=== PATIENT | male | born 1970 | race Caucasian/White ===

== ENCOUNTER 2017-04-30 17:13 | Inpatient (IN) | payer BC ==
[~2017-04-30] VITALS: Ht 177.8 cm; Wt 80.1 kg
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
--- NOTE | ~2017-04-30 | OR ---
PATIENT'S NAME: CAHTY POWELL [facility] AGE: 46 Y [address] 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 I went ahead and reprogrammed the valve from 15 cm to 12 cm of water. Repeated the scan today and there was still no change in the size of the ventricles consequently. I decided to go ahead and do a shuntogram to see if the shunt was blocked and if it was blocked to have an idea of which end. PREOPERATIVE DIAGNOSIS: Hydrocephalus. POSTOPERATIVE DIAGNOSIS: Hydrocephalus. OPERATION PROPOSED AND PERFORMED: Injection of radioisotope into the reservoir of the Codman programmable valve. DESCRIPTION OF PROCEDURE: His procedure was carried out in the nuclear medicine suite. The head was prepped in the usual manner. I put in sterile gloves. I was able to palpate the location of the reservoir and did insert a 25-gauge needle into the reservoir, and was able to aspirate CSF easily and went ahead and injected the radioisotope into the reservoir. He tolerated the procedure well. MD FABIANA BLEDSOE/modl /[id number] d: 05/03/171922 t: 05/08/17 1522, OPERATIVE SUMMARY
--- NOTE | ~2017-04-30 | CON ---
PATIENT'S NAME: CATHY POWELL [facility] AGE: 46 Y [address] ROOM: [address] [place] [address] LOCATION: [facility] ADMIT DATE: 04/30/2017 Consultation DISCHARGE DATE: FAMILY PHYSICIAN: PHYSICIAN, NO ATTENDING PHYSICIAN: ROB GOOD V REFERRING PHYSICIAN: Adam Wright MD HISTORY OF PRESENT ILLNESS: This 46-year-old male was seen by me in the intensive care unit. He was admitted yesterday with a history of sudden severe headache. 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 He also had difficulty concentrating along with his severe headache. After a few hours, he decided to go home from work, and while he was in his car, he had what it was thought to be probably a syncopal episode . He was eventually taken to the emergency room. In the emergency room, he was still complaining of severe headache, the worst he has ever had in his life. His blood pressure then was more than 230 systolic, and consequent to this, he had a lumbar puncture done. The lumbar puncture was unremarkable, literally normal CSF findings. There was no blood in the CSF, and he also went onto have a CT scan of the brain. CT scan of the brain did show a moderate hydrocephalus. CT of his cervical spine was normal. He went on to have an MRI of the brain. The MRI of the brain was also uneventfully just showed the hydrocephalus. There was no known etiology for the hydrocephalus. He has not seen a physician over 20 years. In the emergency room, he denied any chest pain, did not have any shortness of breath. There was no nausea or vomiting. He did complain of some fuzziness of his vision. REVIEW OF SYSTEMS: Apart from the headache and the fuzzy vision, there was really no other abnormality on review of systems. PAST MEDICAL HISTORY: Nil of note. SOCIAL HISTORY: He smokes occasionally. He smokes cigars and drinks beer also occasionally. FAMILY HISTORY: Noncontributory. PHYSICAL EXAMINATION: VITAL SIGNS: In the ICU, this is a 46-year-old male, whose blood pressure was 168/108, the pulse was 83 and regular, respirations were 18, temperature was 98.6. EYES: Pupils were 3 mm in diameter. They both reacted briskly to the light. PATIENT'S NAME: CATHY POWELL [facility] AGE: 46 Y [address] ROOM: [address] [address] LOCATION: [facility] ADMIT DATE: 04/30/2017 Consultation DISCHARGE DATE: FAMILY PHYSICIAN: PHYSICIAN, NO ATTENDING PHYSICIAN: ROB GOOD V GENERAL: He was awake. He was alert. HENT: He was normocephalic. NECK: There was no tenderness on palpating the cervical spinous process. There was no restriction of flexion or extension of the cervical spine. CHEST: Clear. HEART: Rate was regular. ABDOMEN: Soft. NEUROLOGIC: The cranial nerve examination was normal. The motor examination was normal. The reflexes were normal. The toes were downgoing. IMPRESSION AND PLAN: I did review the MRI. I felt that there was some probable lesion within the tonsils. Consequently, I suggested that we should get an MRI of the brain with contrast. In addition, however, I felt that he definitely had hydrocephalus, and consequent to that, my recommendation is that he should have a right CLASSROOM INSTRUCTOR shunt done. The hydrocephalus could explain both the fuzziness of his vision as well as the increased blood pressure and the severe headaches. The other differential here would be malignant hypertension. MD FABIANA BLEDSOE/eric /[id number] d: 05/02/173 t: 05/08/17 1514, CONSULTATION REPORT
--- NOTE | ~2017-04-30 | OR ---
PATIENT'S NAME: CATHY POWELL [facility] AGE: 46 Y [address] 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 POSTOPERATIVE DIAGNOSIS: Hydrocephalus. OPERATION PROPOSED AND PERFORMED: Right ventriculoperitoneal shunt using a programmable valve. DESCRIPTION OF PROCEDURE: Under general anesthesia, the patient was positioned supine. The head tilted to the right. The right parieto-occipital region of the neck, chest and abdomen were prepped in usual fashion. Next, a semilunar incision was carried out 3 fingerbreadths from the midline and centered over the lambdoid suture. The pericranium was incised and a chary hole was carried out at this site. The dura was then cauterized and incised in a cruciate manner. Following this, a subcutaneous tunnel was then carried out extending from the parieto-occipital incision to the epigastrium and the peritoneal catheter was passed through the subcutaneous tunnel. Next, the ventricular catheter was then passed through the chary hole site into the lateral ventricle. CSF came out under increased pressure and it was clear. We measured the opening pressure and it was 27 cm. After, we have lost a few mL of CSF and consequently we programmed the programmable valve to 15 cm of water and connected the programmable valve to the ventricular catheter. It was kept in position with a stitch through the flange. Prior to doing that, however, the distal end of the valve was connected to the peritoneal catheter. Next, we directed our attention to the epigastrium and made an incision. In the epigastrium, we incised the anterior wall of the rectus sheath. We the rectus muscle, it got us to the posterior wall and opened the posterior wall. There was quite a lot of preperitoneal fat, which we were eventually able to get through and made an incision in the peritoneum and put in the peritoneal catheter into the peritoneal cavity. Stitches were then used 3-0 Vicryl to close the peritoneum around the catheter. Next, we made a few sutures into the preperitoneal fat to bring them together PATIENT'S NAME: CATHY POWELL [facility] AGE: 46 Y [address] ROOM: [place] [address] LOCATION: [facility] ADMIT DATE: 04/30/2017 OR/Procedure Report DISCHARGE DATE: FAMILY PHYSICIAN: PHYSICIAN, NO ATTENDING PHYSICIAN: ROB GOOD V around the peritoneal catheter. Next, the rectus sheath as well as the rectus muscles were sutured together. Next, a subcutaneous fatty layer was sutured. Both were sutured using the 0 Vicryl and 3-0 Vicryl was used to bring the subcuticular layers together as well as trey were then used to bring the skin edges together. Next, attention was directed to the parieto-occipital incision which was closed in the usual 2-layer fashion. Throughout the procedure, we irrigated the wound with bacitracin irrigation. The patient tolerated the procedure well and was taken to the recovery room. MD FABIANA BLEDSOE/eric /[id number] d: 05/01/17 2359 t: 05/08/17 1517, OPERATIVE SUMMARY
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
--- NOTE | ~2017-04-30 | ENPV ---
Carotid Duplex Study Demographics Patient Name CATHY POWELL Date of Study 05/01/2017 Patient Number [id number] Gender Male Date of 1970 Age 46 Visit Number [id number] Height 70 Accession Number [id number] Weight 180 Referring Interpreting Ling Fisher MD Physician Physician Physician Maria G Boyd Sewing Machine Repairer Helper Physician Guy WELSH Professor Of Physical Education Marine James BS, RT Conclusions Summary TECHNIQUE: Ultrasound assessment of the carotids, vertebrals, and subclavians in standard fashion with image documentation utilizing albright scale, spectral Doppler, and color flow. FINDINGS: No plaque or malformation is seen within the carotids on either side. Flow velocities are within normal limits. The vertebrals show patency with antegrade flow bilaterally. IMPRESSION: 1. NORMAL CAROTID DOPPLER EXAM. Procedure Type of Study: Cerebral:Carotid, Carotid Doppler Bilateral. Indications for Study:Hypertension. Additional Indications:Hypertensive emergency Patient Status:Routine. Study Location:Inpatient Portable. Technical Quality:Adequate visualization. Velocities are measured in cm/s ; Diameters are measured in cm Carotid Right Measurements Carotid Left Measurements + +--------+--------+ + + + +--------+ --------+ + + !Location !PSV !EDV !Angle !%Stenosis ! !Location !PSV ! EDV !Angle !%Stenosis ! + +--------+--------+ + + + +--------+ --------+ + + !Prox CCA !97 !23 !60 ! ! !Prox CCA !104 ! 21 !60 ! ! + +--------+--------+ + + + +--------+ --------+ + + !Dist CCA !83 !20 !60 ! ! !Dist CCA !78 ! 24 !60 ! ! + +--------+--------+ + + + +--------+ --------+ + + !Prox ICA !40 !12 !60 ! ! !Prox ICA !56 ! 18 !60 ! ! + +--------+--------+ + + + +--------+ --------+ + + !Dist ICA !44 !15 !60 ! ! !Dist ICA !48 ! 21 !60 ! ! + +--------+--------+ + + + +--------+ --------+ + + !Prox ECA !90 ! !60 ! ! !Prox ECA !82 ! !60 ! ! + +--------+--------+ + + + +--------+ --------+ + + !Vertebral !34 ! !60 ! ! !Vertebral !46 ! !60 ! ! + +--------+--------+ + + + +--------+ --------+ + + !Subclavian !72 ! !60 ! ! !Subclavian !78 ! !60 ! ! + +--------+--------+ + + + +--------+ --------+ + + - There is antegrade vertebral flow noted on the right side. - There is antegrade verte bral flow noted on the left side. - Add'l Measurements:ICAPSV/CCAPSV 0.45.ICAEDV/CCAEDV 0.65. - Add'l Measurements:ICAPS V/CCAPSV 0.54.ICAEDV/CCAEDV 1. Signature dtt: Pratik Dubon dtd: 05/01/17 0756 Physician Self Edit
--- NOTE | ~2017-04-30 | DS ---
PATIENT'S NAME: CATHY POWELL [facility] AGE: 46 Y [address] ROOM: [id number] [place], [place] [address] LOCATION: GICU ADMIT DATE: 04/30/2017 Discharge Summary DISCHARGE DATE: 05/07/2017 FAMILY PHYSICIAN: PHYSICIAN, NO ATTENDING PHYSICIAN: Oliver Prince V PRIMARY/DISCHARGE DIAGNOSES: 1. Hypertensive emergency. 2. Acute encephalopathy. 3. Hydrocephalus of unknown etiology. 4. Bilateral papilledema. 5. Bilateral visual impairment. 6. Physical deconditioning. 7. Cerebral hyponatremia. PRINCIPAL PROCEDURES: Done for the patient include: DEVELOPER ANALYST shunt placement by Dr. Wright on DEVELOPER ANALYST shunt revision. LABORATORY DATA: On admission, Accu-Chek was 104. Troponin was less than 0.040, CPK 128. WBC was stable throughout the hospital stay. Before discharge it was 9.4, H and H were stable throughout the hospital stay. Before discharge were 14.3/39.5. Platelets were 179,000 upon discharge. On admission, sodium was 132, prior to discharge was 132; creatinine on admission was 1.2, prior to discharge was 1.0; potassium was stable upon discharge at 4.2; and bicarbonate was stable upon discharge at 26. BUN was stable. Liver function tests were within normal limits. Magnesium was 2.2 upon discharge. Hemoglobin A1c was 5.9. Total cholesterol was 158, triglycerides were 68, HDL was 129, and LDL was 16. UA was negative. Urine drug screen was negative. Blood alcohol level was not recordable. CK-MB was 0.8. CSF analysis; colorless, clear, and wbc's 0. A 24-hour urine for normetanephrine and metanephrine. Normetanephrine was 0.542. High upper level of normal is 0.444. Microbiology; CSF culture was no growth until discharge. RADIOLOGY DATA: CT of the head without contrast is reported as unremarkable. CT cervical, no evidence of cervical spine fracture or dislocation. MRI of the brain is reported as dilatation of the ventricles with periventricular white matter changes raising the question of developing hydrocephalus and periventricular edema, correlation with clinical findings needed. No acute ischemia. MRI of the brain with and without, stable mild prominence of the ventricles, mild generalized parenchymal volume loss. Stable abnormal increased signal within the periventricular white matter, may be secondary to transependymal edema. No abnormal enhancement. No acute ischemia or hemorrhage. Renal duplex ultrasound, right kidney is morphologically normal, measuring 10.6. Normal study. CT of the head following placement of the DEVELOPER ANALYST shunt; transverse frontal horn measurement of 43 mm, stable after placement of PATIENT'S NAME: CATHY POWELL [facility] AGE: 46 Y [address] ROOM: [address] [address] LOCATION: [facility] ADMIT DATE: 04/30/2017 Discharge Summary DISCHARGE DATE: 05/07/2017 FAMILY PHYSICIAN: PHYSICIAN, NO ATTENDING PHYSICIAN: Oliver Prince V the DEVELOPER ANALYST shunt. DEVELOPER ANALYST shunt catheter passes through the right occipital lobe and into the third ventricle. No hemorrhages. No extra-axial fluid or blood. Repeat CT of the head; right occipital DEVELOPER ANALYST shunt is present with tip in the region of the third ventricle, small amount of intracranial air persist. Ventricles remained mildly prominent without significant interval change. No acute hemorrhage. Brain ventriculogram; findings consistent with nonfunctioning shunt. Repeat CT head following revision of the shunt, right occipital shunt appears stable with tip of the third ventricle. There was stable dilatation of the ventricles; periventricular low attenuation was stable. No acute hemorrhage, mass, or extra-axial fluid collection. Overall, there does not appear to be any significant interval change. Echocardiogram reported as ejection fraction was 60% with normal internal dimension, left atrium was mildly dilated by LV volume index measurement, trivial MR, and trivial AR. Carotid duplex; normal carotid Doppler exam. HOSPITAL COURSE: For history of present illness, please take a look at the H and P, which was done by Dr. Prince. The patient was admitted to ICU given his acute encephalopathy and also hypertensive emergency. He was started on Cardene drip which helped to regulate his blood pressure. Given his encephalopathy, he did also get a CT of the head, which was negative. This was followed up with an MRI of his brain, which showed ventriculomegaly. Based on this, Dr. Wright, the neurosurgeon was consulted. The etiology of his hydrocephalus was really unknown. By the next day of his hospital stay, the patient was taken into the OR for a DEVELOPER ANALYST shunt. The procedure was well tolerated by the patient without any intraoperative or postoperative complications. For his hypertensive emergency, this was controlled with Cardene drip which was eventually weaned off and patient was progressively started on p.o. medication of Norvasc, and initially chlorthalidone which was later stopped given his cerebral hyponatremia. One day postoperative, following the placement of his DEVELOPER ANALYST shunt, the patient developed vision impairment, was unable to see clearly, and Dr. Wright did consult Ophthalmology, and after evaluating the patient, they observed the patient had bilateral papilledema. So there was concern by Dr. Wright that probably the DEVELOPER ANALYST shunt was not functioning right so patient did get a ventriculography. We did confirm nonfunctioning of the DEVELOPER ANALYST shunt. The patient subsequently was taken back into the OR after his first day postoperative, and the DEVELOPER ANALYST shunt was replaced. Following the revision of the DEVELOPER ANALYST shunt, says the postoperative patient's vision had significantly improved. He was able to see and decided to ambulate. There was much difficulty in controlling his blood pressure. His new medications were titrated upward. His hydralazine, lisinopril, and Norvasc. The patient was also put on fluid restriction for his cerebral hyponatremia which slowly started to improve on the day of discharge. Following the revision of his DEVELOPER ANALYST shunt, his vision ultimately returned to baseline. However, he did have some physical deconditioning which required him to be discharged to acute rehabilitation. The patient was seen by . PATIENT'S NAME: CATHY POWELL [facility] AGE: 46 Y [address] [place]: [id number] [address] LOCATION: [facility] ADMIT DATE: 04/30/2017 Discharge Summary DISCHARGE DATE: 05/07/2017 FAMILY PHYSICIAN: PHYSICIAN, NO ATTENDING PHYSICIAN: Oliver Prince, who recommended will be a good candidate. So on the day of discharge, after optimizing his blood pressure pills, his blood pressure was stable within a reasonable goal and the patient was discharged to rehabilitation. MEDICATIONS ON DISCHARGE: Include: 1. Norvasc 10 mg p.o. q. day. 2. Hydralazine 50 mg p.o. 3 times daily. 3. Lisinopril 10 mg p.o. q. day. All new medications. 4. Tylenol 650 mg q.6 hours p.r.n., new medication. 5. Colace 100 mg p.o. twice daily p.r.n., new medication. 6. Milk of magnesia 30 mL p.o. q. day p.r.n., new medication. 7. Morphine 2 to 4 mg IV every 4 hours p.r.n. pain, new medication. 8. Zofran 4 mg IV every 4 hours p.r.n. 9. Percocet 1 to 2 tablets of 5/325 mg p.o. every 4 hours p.r.n. 10. MiraLAX 17 g p.o. q. day p.r.n. 11. Tramadol 50 mg p.o. q.4 hours as needed for pain. Discharge time spent on this patient is approximately 35 minutes which included coordination, discharge planning with Care Management. MD MO CALLEJAS/eric /[id number] d: 05/07/17 2333 t: 05/11/17 1419, DISCHARGE SUMMARY
--- NOTE | ~2017-04-30 | ECHO ---
Transthoracic Echocardiography Report (TTE) Demographics Patient Name CATHY POWELL Date of Study 05/01/2017 Patient Number [id number] Visit Number [id number] Date of 1970 Room Number G6231 Gender Male Number Age 46 year(s) Referring Niki Boyd V Poultry Hatchery Manager Navi Mcgraw Physician RDCS, RVT Physician Interpreting Moy Nunes Supervisor Cigar Making Machine Physician Supervising Ordering Niki Tovar MD/MLP Physician MD Nurse Stress Outsole Handler Conclusions Contractility Score Summary Normal Left Ventricular contractility was noted. Summary The estimated left ventricular ejection fraction is 60% with normal internal dimension,wall thickness and WM. The left atrium is mildly dilated by LA volume index measurement. Trivial MR. Trivial AR. Mild TR with normal pulmonary pressures. Procedure Type of Study TTE procedure:2D Echocardiogram. Procedure Date Date: 05/01/2017 Start: 11:03 AM Study Location: Inpatient Portable Technical Quality: Adequate visualization Indications:Hypertension. Additional Indications:Hypertensive emergency Appropriate Use Criteria: 9 Patient Status: Routine HR: 68 bpm BP: 186/107 mmHg M-Mode/2D Measurements LV Diastolic Dimension: 5.17 cm LV Systolic Dimension: 3.84 cm LV Septum Diastolic: 0.9 cm LV PW Diastolic: 0.93 cm AO Root Dimension: 3.1 cm Cardiac Output: 5.45 l/min AV Cusp Separation: 2.3 cm RV Diastolic Dimension: 2.29 cm LA volume: 70 ml LVOT: 2.2 cm RV Base: 3.16 cm LVOT VTI: 21.1 cm RV Mid: 2.78 cm LV Stroke volume: 80.17 ml TAPSE: 3.02 cm TDI-S': 14.3 cm/s Doppler Measurements AV Peak Velocity: 1.34 m/s MV Peak E-Wave: 0.46 m/s AV Peak Gradient: 7.18 mmHg MV Peak A-Wave: 0.97 m/s AV Mean Gradient: 5 mmHg MV E/A Ratio: 0.48 LVOT Peak Velocity: 0.97 m/s MV P1/2t: 80 msec TR Gradient:20.43 mmHg PV Peak Velocity: 0.81 m/s Estimated RAP:5 mmHg PV Peak Gradient: 2.59 mmHg Estimated RVSP: 25 mmHg Estimated PASP: 25.43 mmHg E' Septal Velocity: 0.04 m/s A' Septal Velocity: 0.09 m/s E' Lateral Velocity: 0.04 m/s A' Lateral Velocity: 0.1 m/s Findings Left Ventricle Normal left ventricle size and function. Right Ventricle Normal right ventricle structure and function. Left Atrium The left atrium is mildly dilated by LA volume index measurement. Right Atrium Normal right atrial size. Mitral Valve Trivial mitral regurgitation by color Doppler. Aortic Valve Normal aortic valve structure and function. There is trivial aortic regurgitation by color Doppler. Tricuspid Valve Mild tricuspid regurgitation by color Doppler. Pulmonic Valve Normal pulmonic valve structure and function. Pericardial Effusion No evidence of pericardial effusion. Miscellaneous Visualized portions of the aortic root and ascending aorta appear normal in size. Pleural Effusion No evidence of pleural effusion. Contractility Score LV regional wall motion:(0-Non visualized 1-Normal 2-Hypokinesis 3-Akinesis 4-Dyskinesis 5-Aneurysm) Signature dtt: Manju Winter dtd: 05/01/17 1103 Physician Self Edit
--- NOTE | ~2017-04-30 | OR ---
PATIENT'S NAME: CATHY POWELL [facility] AGE: 46 Y [address] ROOM: [place] [address] LOCATION: GICU ADMIT DATE: 04/30/2017 OR/Procedure Report DISCHARGE DATE: FAMILY PHYSICIAN: PHYSICIAN, NO ATTENDING PHYSICIAN: ROB GOOD V SURGEON: Adam Wright MD BENEFITS DIRECTOR: DATE OF PROCEDURE: 05/03/2017 PREOPERATIVE DIAGNOSES: 1. Hydrocephalus. 2. Blocked LAND SURVEY TECHNICIAN shunt. POSTOPERATIVE DIAGNOSES: 1. Hydrocephalus. 2. Blocked LAND SURVEY TECHNICIAN shunt. OPERATION PROPOSED AND PERFORMED: Revision of both ends of the LAND SURVEY TECHNICIAN shunt. PREAMBLE: This 46-year-old male, who was admitted with hydrocephalus and had a LAND SURVEY TECHNICIAN shunt put in two days ago. Followup CT scans did not show any decrease in the size of the ventricles. We consequently went ahead and did a shuntogram today and a shuntogram showed that the radioisotope was not going down the peritoneal catheter and never did go to the peritoneal cavity indicating that the lower end is most likely the area where the blockage is. DESCRIPTION OF PROCEDURE: Under general anesthesia, the patient was positioned supine. The head tilted to the left. The right parieto-occipital region of the neck, chest, and abdomen were prepped and draped in the usual fashion. Starting at the parieto-occipital area, the incision was opened. After removing the trey, I identified the valve and pulled it out pulling the peritoneal catheter into the wound. We then cut the peritoneal catheter and on doing this, the CSF came out copiously indicating that the ventricular catheter was working well. Consequently, in spite of the fact that the ventricular catheter seemed to be in the 3rd ventricle, I did not see any reason to change it. Consequently, the portion of the peritoneal catheter that was still attached to the valve was removed. The proximal portion of the remaining ventricular peritoneal catheter was then attached to the valve and we have tied this in place using 3-0 silk. Next, we directed our attention up to the abdomen, the incision was opened and we went all the way to the peritoneum, identified the peritoneum, and by so doing put a through the opening, the catheter went through into the peritoneal cavity. Having done that, the portion of the peritoneal catheter and the peritoneal cavity was removed and on doing this, there was no debris at the end of the catheter, however pumping the valve reservoir, the head resulted in CSF dripping out of PATIENT'S NAME: CATHY POWELL [facility] AGE: 46 Y [address] ROOM: [address] [address] LOCATION: GICU ADMIT DATE: 04/30/2017 OR/Procedure Report DISCHARGE DATE: FAMILY PHYSICIAN: PHYSICIAN, NO ATTENDING PHYSICIAN: ROB GOOD V the lower end of the peritoneal catheter. To make ourselves doubly sure, I also went ahead and gently aspirated fluid through the distal end of the peritoneal catheter and this came out quite easily. There was no obvious area that could explain the blockage in the lower end. The wound was thoroughly irrigated with bacitracin irrigation. The peritoneal catheter was then passed through the same opening in the peritoneum and advanced into the peritoneal cavity. The catheter went in quite easily and we were able to easily pull it back out and push it back in. We did put an extra stitch in the peritoneum. Next, the anterior rectus sheath was then sutured together and with this we also did withdraw the peritoneal catheter to make sure that it was not tied down with a suture used in suturing the rectus sheath and this was not the case. Next, some subcutaneous 3-0 Vicryl sutures were put together, paying very close attention to the upper portion of the incision where the peritoneal catheter could be seen just below the skin and next, we then stapled the skin edges together, taking extra precaution to make sure that the trey did not go deep enough to kink the peritoneal catheter. After this was done, we then went ahead and sutured the flanges of the programmable valve to the peritoneum on the right side and on the left side we holes through which one was to put the needle that already was torn through the outer portion of the hole, and so I could not do anything with that. Therefore, elected to close the scalp in a single layer using 3-0 Prolene continuous mattress suture. The patient tolerated the procedure well. He was taken to the recovery room. MD FABIANA BLEDSOE/eric /[id number] d: 05/04/17 0135 t: 05/08/17 1525, OPERATIVE SUMMARY
--- NOTE | ~2017-04-30 | OR ---
PATIENT'S NAME: CATHY POWELL [facility] AGE: 46 Y [address] ROOM: [place] [address] LOCATION: [facility] ADMIT DATE: 04/30/2017 OR/Procedure Report DISCHARGE DATE: FAMILY PHYSICIAN: PHYSICIAN, NO ATTENDING PHYSICIAN: ROB GOOD V SURGEON: Anayeli Avila MD COMMUNICATION CENTER OPERATOR: DATE OF PROCEDURE: 05/02/2017 PREOPERATIVE DIAGNOSIS: Hydrocephalus. POSTOPERATIVE DIAGNOSIS: Hydrocephalus. OPERATION PROPOSED AND PERFORMED: Reprogramming of the Codman programmable HUMAN RESOURCES HR GENERALIST shunt valve. PROCEDURE: This procedure was carried out at the bedside. The patient's head turned to the left. The region of the valve was identified. The valve programming machine was set at 12 of water. The valve change was then placed over the valve and switched on. This change was done successfully and there was no untoward effect. ANAYELI AVILA MD AEB/modl /[id number] d: 05/03/17 0052 t: 05/08/17 1519, OPERATIVE SUMMARY
[2017-04-30 18:06] LABS: BASOPHIL # 0.1 K/uL (0.0-0.2); BASOPHIL % 0.8 %; EOSINOPHIL % 0.3 %; HEMATOCRIT 42.6 % (37.0-53.0); HEMOGLOBIN 15.5 g/dL (12.0-17.0); IMMATURE GRANULOCYTE # 0.1 K/uL (0.0-0.3); IMMATURE GRANULOCYTE % 0.5 %; LYMPHOCYTE # 0.6 K/uL (0.8-4.0); LYMPHOCYTE % 6.4 %; MCHC 36.4 gm/dL (32.0-36.5); MCV 93.4 fl (83.0-98.0); MONOCYTE # 0.7 K/uL (0.0-1.0); MONOCYTE % 7.6 %; MPV 10.8 fl (9.4-12.4); NEUTROPHIL # (ANC) 8.2 K/uL (1.4-9.0); NEUTROPHIL % 84.4 %; NRBC % 0 /100WBC (0-0.00); PLATELET COUNT 200 K/uL (150-450); RBC 4.56 M/uL (4.00-6.00); RDW-CV 11.8 % (11.9-14.6); WBC 9.7 K/uL (4.0-11.0)
[2017-04-30 18:17] LABS: INR - (THERAPEUTIC) 0.97 (0.92-1.07); PROTIME 10.2 SECONDS (9.8-11.4); PTT 25 SECONDS (25-32)
[2017-04-30 18:26] LABS: ALBUMIN 4.6 gm/dL (3.5-5.0); ALK PHOS 83 IU/L (33-138); ALT 31 IU/L (12-78); ANION GAP 12.8 (10.0-19.0); AST 26 IU/L (10-40); BLOOD UREA NITROGEN 7 mg/dL (6-24); CHLORIDE 98 mMol/L (96-110); CO2 25 mMol/L (22-32); CPK 128 IU/L (35-332); CREATININE 1.2 mg/dL (0.6-1.3); ESTIMATED GFR (MDRD EQUATION) > 60; POTASSIUM 3.8 mMol/L (3.7-5.1); SODIUM 132 mMol/L (135-145)
[2017-04-30 21:10] LABS: BILIRUBIN URINE NEGATIVE (NEGATIVE); BLOOD URINE NEGATIVE /UL (NEGATIVE); COLOR URINE YELLOW (YELLOW); GLUCOSE URINE NEGATIVE (NEGATIVE); KETONE URINE 15 mg/dL (NEGATIVE); LEUKOCYTES URINE NEGATIVE /UL (NEGATIVE); NITRITE URINE NEGATIVE (NEGATIVE); PROTEIN URINE NEGATIVE (NEGATIVE); TURBIDITY URINE CLEAR (CLEAR); UROBILINOGEN URINE NORMAL (NORMAL)
[2017-04-30 21:36] LABS: BARBITURATE NEGATIVE (NEGATIVE); OPIATES NEGATIVE (NEGATIVE)
[2017-04-30 21:37] LABS: AMPHETAMINE NEGATIVE (NEGATIVE); COCAINE NEGATIVE (NEGATIVE)
--- NOTE | 2017-05-01 02:15 | NUR ---
Patient had been initially admitted from ED to PCU at 2310. Dr. Prince visited with patient and family regarding the report for his MRI study. Based on these findings, Dr. Prince considered it would be best for patient to be transferred to ICU for closer monitoring/higher level of care. Patient had arrived to PCU on Cardene drip infusing at 5 mg/hr. He did complain of a headache. He was alert/oriented x3, answered questions appropriately, and followed commands appropriately. Report given to Jose Hoskins RN at 2350 and patient transferred via wheelchair at 0025 to ICU.
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
--- NOTE | 2017-05-01 03:58 | NUR ---
Significant Event: A&Ox3, slow to answer questions at times. Searches for words, Inappropriate words. Patient appears to have a hard time expressing himself at times. Denies blurry vision at this time but patient states it "comes and goes". throbbing headache rating 7-9/10. Ultram and tylenol given with minimal relief. Sensitive to light, modified environment, ice pack to head. 24 hour UA ongoing, started at 0215 05/01/17, barn on ice. Patient educated on urnial use. BP: 130s/80s-150s/90s, HR: 80s-100s, room air, afebrile. Cardene gtt shut off upon admission due to parameters. Ex- at bedside. Bed alarms on for saftey. Transfers with SBA, unsteady. Follow up: MRI this morning.
--- NOTE | 2017-05-01 12:51 | NUR ---
Patient oriented x3, but is slow to respond to some questions. SÁNCHEZ all shift with little relief after PRN Tylenol and Fentanyl given. Cardene gtt restarted d/t SBP up to 200s. HR stable. Remains on room air, lungs clear. Clear liquid diet this AM, NPO for lunch and after d/t possible AUDIO VISUAL TECH shunt. Renal ultrasound and MRI with contrast completed.
--- NOTE | 2017-05-01 16:47 | NUR ---
PATIENT TO PACU FOR PRE OP AT 1540. MOTHER AT BEDSIDE. ASSISTED TO SURGERY WAITING ROOM PRIOR TO PATIENT DEPARTURE TO OR. VSS. CARDENE GTT INFUSING TO RIGHT HAND IV. SEE VITAL SIGNS SCREEN FOR FREQUENT VITALS. LEFT WRIST HOOKED UP TO NORMOSOL BY VASILE ANESTHESIA RN. DRSG'S TO BILATERAL IV'S CHANGED, NEW TEGADERM PLACED. PATIENT RESTING WELL IN BED, ANXIOUS. PERRLA. REPORTS BLURRED VISION BEYOND THE NORMAL BLURRINESS WITHOUT HIS GLASSES. FOLLOWS COMMANDS WELL. NO WEAKNESS TO EXTREMITIES. DENIES NUMBNESS/TINGLING. RIGHT ABDOMEN AND CHEST SHAVED AND PREPPED. Bronwyn BURKS RN PACU
--- NOTE | 2017-05-01 18:01 | NUR ---
Significant Event:Care for pt 1515 to 1540, then tx to Preop Holding per bed per lead RN and tx team. No changes in assessments as reported by TEST PREPARER. VSS remains on Cardene gtt, reports his pain in L temporal is controlled 05/26. Pt family in surgical waiting room. Follow up:Post op recovery, need to start 24 hour urine.
--- NOTE | 2017-05-02 04:52 | NUR ---
Significant Event: PATIENT IS ALERT AND ORIENTED X3. PRIOR TO FIELD CLINICAL ENGINEER SHUNT PROCEDURE PATIENT HAD INTERMITTENT BLURRED VISION. FOLLOING PROCEDURE, PATIENT HAS SEVERE BLURRED VISION AND IS UNABLE TO DISTINGUISH SHAPES BUT CAN SEE SOME LIGHT. PUPILS ARE 2BRISK. DR. AVILA NOTIFIED OF VISION DEFICIT. CENTRAL OFFICE MAINTAINER ARE STRONG AND EQUAL BILATERALLY. PATIENT ON CARDENE DRIP AT 5MG/HR TO KEEP SBP <150. ON 2 L O2 PER NC. HX SMOKING AND DRINKING UP TO 30 BEERS/DAY. LAST DRINK ON 04/30/17. INCISION TO BACK OF HEAD HAS MODERATE AMOUNT OF DRAINAGE, ABDOMINAL DRESSING HAS MINIMAL DRAINAGE. MORPHINE AVAILABLE. 24 HOUR URINE. DONE AT 1999 ON 05/02/17. NS INFUSING AT 125ML/HR. VOIDS WITHOUT DIFFICULTY. FAMILY AT BEDSIDE. Follow up: CONSIDER CIWA IF PATIENT'S STATUS CHANGES.
[2017-05-02 05:57] LABS: BASOPHIL % 0.3 %; EOSINOPHIL % 0.2 %; HEMATOCRIT 39.5 % (37.0-53.0); HEMOGLOBIN 14.3 g/dL (12.0-17.0); IMMATURE GRANULOCYTE % 0.4 %; LYMPHOCYTE # 0.5 K/uL (0.8-4.0); LYMPHOCYTE % 5.5 %; MCHC 36.2 gm/dL (32.0-36.5); MONOCYTE # 0.9 K/uL (0.0-1.0); MONOCYTE % 9.2 %; MPV 10.7 fl (9.4-12.4); NEUTROPHIL # (ANC) 7.9 K/uL (1.4-9.0); NEUTROPHIL % 84.4 %; NRBC % 0 /100WBC (0-0.00); PLATELET COUNT 179 K/uL (150-450); RDW-CV 11.8 % (11.9-14.6); WBC 9.4 K/uL (4.0-11.0)
[2017-05-02 06:12] LABS: ANION GAP 11.6 (10.0-19.0); BLOOD UREA NITROGEN 5 mg/dL (6-24); CALCIUM 7.8 mg/dL (8.5-10.5); CHLORIDE 99 mMol/L (96-110); CO2 25 mMol/L (22-32); CREATININE 0.9 mg/dL (0.6-1.3); ESTIMATED GFR (MDRD EQUATION) > 60; POTASSIUM 3.6 mMol/L (3.7-5.1); SODIUM 132 mMol/L (135-145)
--- NOTE | 2017-05-02 14:56 | NUR ---
Introdcued self and role of care management to patient' parents as he is sleeping. He lives here in [place] with his ex-. He is normally able to do all his own ADL's. I did inquire if he had any medical insurance and his mother states he had insurance thru his employer. I explained we would try to get this information. They are hoping he will be able to return home on discharge. They deny any needs at this time. Will continue to follow.
[2017-05-02 15:44] LABS: ALBUMIN 3.7 gm/dL (3.5-5.0); TOTAL PROTEIN 6.9 g/dL (6.0-8.4)
[2017-05-02 15:46] LABS: TOTAL BILIRUBIN 1.3 mg/dL (0.0-1.5)
--- NOTE | 2017-05-02 18:39 | NUR ---
Significant Event: alert. slow to respond. orientated to place and name, not always month/year/. is anxious about eyesight. only to see light and dark. Dr. Glover was consulted and saw patient noting that his blood pressure has been elevated for a while and as the pressure in his head resolves his eyesight should return. pupils are 3.0/brisk except for this aftn since dr. glover uses dilating eye drops. this will last for 4-6 hours. denies numbness/tingling. equal strength throughout. IV to right hand with NS at 125ml/hr. Cardene drip discontinued at 1355 and lisinopril initial dosed. DSG to back of head surgical site changed with no drainage since changed. dsg to abdomen with scant-small amount of bloody drainage. 24 hour UA in progress to be completed at 2000. voids per urinal standing. CIWA scoring in progress. PRN tramadol and PRN morphine for pain management. at 0655 13 beat of Vtach noted and dr. buitrago updated with orders for 40meq of potassium now- heart echo results from study done 05/01 pending.
--- NOTE | 2017-05-03 04:46 | NUR ---
Significant Event: PATIENT ALERT TO NAME AND PRESIDENT. DISORIENTED TO TIME, PLACE AND . MOVES ALL EXTREMITIES SPONTANEOUSLY AND TO COMMAND. MODERATE, EQUAL STRENGTH. DENIES NUMBNESS AND TINGLING. PUPILS 3.0 AND SLUGGISH - EYES WERE DILATED YESTERDAY AT 1330. STILL UNABLE TO SEE ANYTHING. LUNGS CLEAR ON ROOM AIR. SBP IN 130S-150S. HEART RATE IN 80S-90S. DRESSING TO BACK OF HEAD C/D/I. DRESSING TO ABDOMEN HAS SCANT DRAINAGE ON IT. DR. AVILA ADJUSTED SHUNT TODAY. CT THIS MORNING TO REEVALUATE SHUNT. REGULAR DIET. IV TO RIGHT HAND SALINE LOCKED. UP 1 ASSIST - NEEDS LOTS OF VERBAL QUEING. GAVE 5MG OF VALIUM X2 OF CIWA SCORE. ULTRAM GIVEN X2 FOR PAIN TO SURGICAL SITE. Follow up:WATCH FOR DETOX SYMPTOMS. PT/OT TO SEE TODAY.
[2017-05-03 05:56] LABS: ANION GAP 11.6 (10.0-19.0); BLOOD UREA NITROGEN 8 mg/dL (6-24); CALCIUM 8.6 mg/dL (8.5-10.5); CHLORIDE 97 mMol/L (96-110); CO2 25 mMol/L (22-32); ESTIMATED GFR (MDRD EQUATION) > 60; POTASSIUM 3.6 mMol/L (3.7-5.1); SODIUM 130 mMol/L (135-145)
--- NOTE | 2017-05-03 12:50 | NUR ---
Significant Event:PT IS ALERT TO SELF. UNABLE TO TELL ME TIME OR PLACE. BLIND. BUT STATES HE CAN SEE HINTS OF LIGHT. EXPRESSIVE APHASIA. VERY SLOW TO PROCESS QUESTIONS AND COMMANDS. EQUAL STRENGTH. NO NUMBNESS OR TINGLING. PUPIL ARE 3.O AND SLUGGISH. CLEAR LUNG SOUNDS ACTIVE BS. DRSG TO BACK OF HEAD HAS SOME SHADOW DRAINAGE. ABDOMINAL DRSG HAS SOME SHADOW DRAINAGE. 40 OF ORAL POTASSIUM GIVEN. ALSO GAVE AN EXTRA 10MG OF LISINOPRIL. BP 150-160. MD AWARE. TO KEEP LESS THAN 150. [place] 0940. GAVE VALIUM AT 0801 OER CIWA SCORE THIS AM. ULTRAM GIVEN AT 1216 PRIOR TO GOING FOR SHUNTOGRAM. ALSO GAVE TYLENOL AT 0801 FOR HEADACHE RELIEF NOTED. Follow up:POSSIBLE SURGERY.
--- NOTE | 2017-05-04 05:17 | NUR ---
Significant Event: PATIENT CAME BACK FROM SURGERY AT 1930. Q1 NEUROS AND VITALS. ALERT TO SELF. D/O TO PLACE AND TIME. MOVES ALL EXTREMITIES SPONTANEOUSLY AND TO COMMAND. EXPRESSIVE APHASIA. BLIND. ABLE TO SEE BRIGHT LIGHTS. DENIES NUMBNESS AND TINGLING. PUPILS 3.0 AND BRISK. LUNGS CLEAR. DRESSING TO BACK OF HEAD AND ABDOMEN WITH SHADOW DRAINAGE. KEEP SBP <150. CIWA SCORE - GAVE VALIUM X2 TODAY. ULTRAM GIVE X1. DIET TOLERATED - CURRENTLY IN LIQUID. CT DONE THIS SHIFT. SBP 120S-150. HEART RATE 70S-90S. Follow up:
[2017-05-04 05:33] LABS: ANION GAP 15.2 (10.0-19.0); BLOOD UREA NITROGEN 17 mg/dL (6-24); CALCIUM 8.6 mg/dL (8.5-10.5); CHLORIDE 99 mMol/L (96-110); CO2 21 mMol/L (22-32); ESTIMATED GFR (MDRD EQUATION) > 60; MAGNESIUM 2.2 mg/dL (1.8-2.6); POTASSIUM 4.2 mMol/L (3.7-5.1); SODIUM 131 mMol/L (135-145)
--- NOTE | 2017-05-04 15:02 | NUR ---
Significant Event: PATIENT ALERT TO PERSON AND PLACE, WAS DISORIENTED TO YEAR THIS AM BUT NOW ORIENTED X 3. STILL SLOW TO RESPOND AND NEEDS LOTS OF CUEING WITH THINGS. FOLLOWS COMMANDS. STRONG AND EQUAL STRENGTH. DENIES NUMBNESS/TINGLING. PUPILS 3MM, BRISK. STILL HAVING SOME VISION ISSUES ESPECIALLY WITH THINGS UP CLOSE BUT MUCH IMRPOVED. LUNGS CLEAR, ON ROOM AIR. DRESSING TO HEAD INTACT, SOME SHADOW DRAINAGE ON ABDOMINAL DRESSING. DID C/O HEADACHE EARLIER, TRAMADOL GIVEN AT 1000 WITH RELIEF NOTED. IV IN RT FOREARM INFUSING NORMAL SALINE AT 75MLS/HR. BP THIS AM WAS 160'S THEN ONCE GOT TO 200'S. CARDENE DROP RESTARTED , CURRENTLY INFUSING AT 5MG/HR. UP WITH 1 ASSIST AND WALKER. ALARMS ON FOR SAFETY. HAS NOT HAD BM SINCE 04/29 BUT HAS NOT BEEN EATING MUCH. DID PLACE HIM ON A REGULAR DIET TODAY, WHICH HE ATE ABOUT 25%. NOW HAVE ORDERS FOR PRN LAXATIVES. Follow up: ALARMS. NEURO'S/VITALS Q 2HRS. CARDENE DRIP.
--- NOTE | 2017-05-05 04:07 | NUR ---
Significant Event: A/OX3. FORGETFUL. DENIES NUMBNESS AND TINGLING. MODERATE, EQUAL STRENGTH. PUPILS 3.0 AND BRISK. ABLE TO SEE BETTER - CAN STATE HOW MANY FINGERS HOLDING UP. ABLE TO MANUEVER BETTER - 1 ASSIST GAIT BELT. SINUS RHYTHM. HEART RATE 60S-80S. SBP 120S-150S - NO CARDENE GTT THIS SHIFT. AFEBRILE. LUNGS CLEAR ON ROOM AIR. IV TO RIGHT FOREARM RUNNING NORMAL SALINE AT 75ML/HR. Q2 NEURO AND VITALS. DRESSING TO BACK OF HEAD AND ABDOMEN WITH SCANT, OLD DRAINAGE. Follow up:
[2017-05-05 05:05] LABS: ANION GAP 11.4 (10.0-19.0); BLOOD UREA NITROGEN 14 mg/dL (6-24); CALCIUM 8.6 mg/dL (8.5-10.5); CHLORIDE 97 mMol/L (96-110); CO2 27 mMol/L (22-32); ESTIMATED GFR (MDRD EQUATION) > 60; MAGNESIUM 2.1 mg/dL (1.8-2.6); POTASSIUM 3.4 mMol/L (3.7-5.1); SODIUM 132 mMol/L (135-145)
--- NOTE | 2017-05-05 12:30 | NUR ---
A - PT SCREENED D/T LOS. 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 PT W/ 1+ EDEMA TO HANDS AND BLE. PERTINENT MEDS: ZOFRAN. NO BM SINCE 04/29; PRN LAXATIVES ORDERED. DIET: REGULAR W/ 0-75% INTAKE. PT STATES APPETITE BETTER NOW THAT HE'S MORE "WITH IT." DENIES NEED FOR SUPPLEMENT. D - AT RISK W/ INADEQUATE ORAL INTAKE R/T DECREASED LOC AND APPETITE AEB INTAKRE RECORD. I - GOAL: 50-75% OR BETTER INTAKE BY DISMISSAL. M/E - F/U IN 2-4 DAYS.
--- NOTE | 2017-05-05 16:24 | NUR ---
Significant Event: Patient alert and oriented x3. Vision still slightly distorted but more like patient's baseline. Pupils 3mm, brisk. Denies numbness/tingling. Reports headache, ultram given with relief noted. Hypertensive, all other VSS on room air. IV hydralazine given with no relief noted. IV labetalol given with relief noted, SBP 130's now. Keep SBP <150. Voids per bathroom. 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 IV to R) wrist infusing NS at 75 mL/hr. Limit visitors. Follow up: VS/neuros q 2 hours. Up with SBA. Regular diet. ICU status.
[2017-05-06 04:53] LABS: ANION GAP 10.9 (10.0-19.0); BLOOD UREA NITROGEN 9 mg/dL (6-24); CALCIUM 8.6 mg/dL (8.5-10.5); CHLORIDE 99 mMol/L (96-110); CO2 26 mMol/L (22-32); ESTIMATED GFR (MDRD EQUATION) > 60; MAGNESIUM 1.9 mg/dL (1.8-2.6); SODIUM 132 mMol/L (135-145)
[2017-05-06 04:54] LABS: POTASSIUM 3.9 mMol/L (3.7-5.1)
--- NOTE | 2017-05-06 05:27 | NUR ---
Significant Event: The patient is Alert and oriented x3, slightly forgetful at times. Moves all extremities spontaneously and to command. Equal strength throughout. Denies Numbness and tingling. Complaints of double vision upon my first neuro assessment, but upon all other neuro assessments the patient denied any double vision. VSS. On room air. Slight headache at times gave Ultram with night time meds. Dressing to head and abdomen intact. PIV to the Right forearm infusing NS at 75ml/hr. Pupils are equal and reactive. ICU status. Follow up: Neuro and Vitals Q2H
--- NOTE | 2017-05-06 14:09 | NUR ---
Social visit with patient and family today. We discussed the benefits of going to [facility] vs Outpatient therapy. He did agree that [facility]IR[facility] would be the best option. I spoke with [facility] on [facility] and they can take him on Friday at 0900. Insurance precert is completed.
[2017-05-06 14:18] LABS: METANEPHRINE [CALC] 0.191 mg/24h (0.052-0.341); NORMETANEPHRINE [CALC] 0.542 mg/24h (0.088-0.444); TOTAL METANEPHRINES [CALC] 0.733 mg/24h (0.140-0.785)
--- NOTE | 2017-05-06 15:18 | NUR ---
Updated patients family that he can go to [facility] tomorrow at 0900. Patient was out of room with PT.
--- NOTE | 2017-05-06 16:23 | NUR ---
Significant Event: Patient is A&O x3. Follows commands. Equal strength in all extremities. Denies numbness & tingling. States that his vision is almost back to normal, no double vision. VSS but is a little hypertensive at times. Order to keep SBP <150, neuro checks & VS Q2H. Does complain of a R) side headache and I gave him Ultram @ 0721 & 1106 and 1 Percocet @ 0816 & 1449 with relief noted. Has a dressing to his head and abdomen that are C/D/I. IV to L) FA SL. Up with 1 assist and gait belt. Did leave the floor twice today with therapy. 2000 ml fluid restriction started today for low sodium. Cooperative with cares. Waiting on Dr. Wright to round to get off of ICU status. Follow up: Plan for [facility] at 0900, monitor neuro checks & VS Q2H.
--- NOTE | 2017-05-07 05:23 | NUR ---
Significant Event: Patient is alert and oriented x 3. Denies numbness or tingling. C/O right-sided headache controlled with PRN Ultram and Percocet. Rested well tonight. Moves spontaneously and follows commands with equal strength. 2+ pulses. SBA, gait belt. States vision is pretty much back to normal. PERRLA. Regular diet with good appetite. 2000 mL fluid restriction. HTN at times but tends to come down when checked shortly later. SBP goal <150. BP medications adjusted yesterday. SR. No edema. On room air. Lungs clear. Afebrile. VS BID. Voids per restroom without difficulties. Bowel sounds active. No BM this shift. IV SL to left forearm flushes without difficulties. Pleasant and cooperative with cares. Dressing to head changed prior to bed d/t previous fell off. [facility] at 0900. Follow up: monitor SBP and neuro status, alarms, [facility] at 0900 (report given)
[2017-05-07 05:42] LABS: ANION GAP 12.2 (10.0-19.0); BLOOD UREA NITROGEN 10 mg/dL (6-24); CALCIUM 9.1 mg/dL (8.5-10.5); CHLORIDE 99 mMol/L (96-110); CO2 26 mMol/L (22-32); ESTIMATED GFR (MDRD EQUATION) > 60; MAGNESIUM 2.2 mg/dL (1.8-2.6); POTASSIUM 4.2 mMol/L (3.7-5.1); SODIUM 133 mMol/L (135-145)
--- NOTE | 2017-05-07 08:28 | NUR ---
Patient is alert and oriented x3. Follows commands. Rates SÁNCHEZ at 2 and refuses medication at this time. Denies N/T. Calm and cooperative. PERRLA. Equal strength. Pulses palpable throughout. Lungs are clear throughout on RA. Sinus Isaak. HTN- Medications given last SBP 142/82.PIV to right FA- SL. Midline incision to abd r/t WELDER GUN shunt. Stapled. Dressing changed- covered by island. Incision to head is covered with island dressing. Abrasion to right knee- open to air. Slightly unsteady with ambulation- Gait belt. Denies dizziness with standing. Pleasant and cooperative with cares.
== END 2017-05-07 08:57 | DRG 31 ==
LOC: GACC 17:13 → GICU 22:33 → GPCU 22:33 → GICU 23:56
PROVIDERS: Family Medicine; Hospitalist; ADMIT Internal Medicine
DX: G91.9 Hydrocephalus, unspecified (principal); G93.40 Encephalopathy, unspecified; H47.10 Unspecified papilledema; G93.89 Other specified disorders of brain; I16.1 Hypertensive emergency; T85.890A Other specified complication of nervous system prosthetic devices, implants and grafts, initial encounter; F17.220 Nicotine dependence, chewing tobacco, uncomplicated; Z82.49 Family history of ischemic heart disease and other diseases of the circulatory system; F41.9 Anxiety disorder, unspecified; R55 Syncope and collapse; H54.7 Unspecified visual loss
CPT/HCPCS: A9539; A9577; G0480; J0360; J0690; J1100; J2001; J2270; J2405; J3010; J7030; J7050

== ENCOUNTER → 2017-04-30 | Emergency (ER) | payer SELFPAY ==
[~2017-04-30] MED LIST: APRESOLINE50 MG PO; NORVASC10 MG PO; PRINIVIL OR ZES10 MG PO; TYLENOL325 MG PO; ULTRAM50 MG PO
== END | disposition disaster alternative care site (69) ==
LOC: GAMB 16:08
DX: R51 Headache (principal); R42 Dizziness and giddiness

== ENCOUNTER 2017-05-07 09:14 | Inpatient (IN) | payer BC ==
[~2017-05-07] VITALS: Ht 177.8 cm; Wt 81.1 kg
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
--- NOTE | ~2017-05-07 | DS ---
PATIENT'S NAME: CATHY POWELL [facility] AGE: 46 Y [address] ROOM: [place] [address] LOCATION: [facility] ADMIT DATE: 05/07/2017 Discharge Summary DISCHARGE DATE: 05/11/2017 FAMILY PHYSICIAN: PHYSICIAN, NO ATTENDING PHYSICIAN: Nikia John [facility] COURSE: This 46-year-old gentleman was admitted to rehab unit at [facility] on 05/07/2017 and was discharged to home on 05/11/2017. 1. Unstable gait. 2. Dependent in activities of daily self-care. 3. Difficulty with his speech and memory at times, which have improved. He is, at the present time, alert and oriented, and is able to comprehend and express without much difficulty; however, he requires some work to improve his ability to be more accurate with his speech and also to be more precise with his movement. He will continue to do PT, OT, and Speech 3 times per week for 2 weeks, I will see him thereafter. He is, at the present time, with the following vitals. Blood pressure 144/92, temperature 97.0, pulse 84, and respirations 16. He can ambulate up to 600 feet, but is limited with fatigue towards the end and will get a little bit unsteady. He did have, at one time, papilledema after the first time of ventriculoperitoneal shunt, which was revised again. The first time it was done was on 05/02/2017, ventriculoperitoneal shunt, and revision was done on 05/03/2017. He is, at the present time, doing well. We will continue outpatient therapy. He is advised not to drive and/or operate any mechanical device for the time being until he is re-evaluated. He should avoid alcoholic beverage. He should avoid salt in his diet and should follow with his family physician for his hypertension. Follow up with me in 2 weeks. Follow up with Dr. Wright as he sees fit. MEDICATIONS: 1. Norvasc 10 mg p.o. daily. PATIENT'S NAME: CATHY POWELL [facility] AGE: 46 Y [address] ROOM: [place] [address] LOCATION: [facility] ADMIT DATE: 05/07/2017 Discharge Summary DISCHARGE DATE: 05/11/2017 FAMILY PHYSICIAN: PHYSICIAN, NO ATTENDING PHYSICIAN: Nikia John 2. Apresoline 50 mg 3 times daily. 3. 10 mg twice daily p.o. 4. Tylenol 650 q.6 hours. Do not exceed acetaminophen 4 grams q.24 hours. 5. Ultram 50 mg p.o. q.4 hours, 36 of them. FINAL DIAGNOSES: 1. Unstable gait. 2. Dependent activities of daily and self-care. 3. Difficulty with his orientation, now better. 4. Hypertension. All of the above was explained to him in detail. He verbalized understanding and agreement with plan of care. NIKIA JOHN MD WMS/modl /[id number] d: 05/10/17 1541 t: 05/12/17 0848, DISCHARGE SUMMARY
--- NOTE | 2017-05-07 14:28 | NUR ---
Significant Event:PATIENT ALERT AND ORIENTED BUT IS FORGETFUL AND HAS HAD SOME CONFUSION. IS SLIGHTLY UNSTEADY ON HIS FEET. VSS. BP RUNS A LITTLE HIGH AT TIMES. IS ON ORAL HYDRALIZINE FOR THIS. FAMILY AT BEDSIDE. TRANSFERS WITH 1 ASSIST, GAIT BELT. GOT SICK AT LUNCH BUT STATES IT WAS FROM THE SMELL OF THE GRILLED CHEESE. DID EAT SOME COTTAGE CHEESE AFTER. HAS AN INCISION ON THE BACK OF HIS HEAD COVERED WITH ISLAND DRESSING WHICH IS LOOSE DUE TO NEW HAIR GROWTH. ALSO HAS AN ISLAND DRESSING TO MID UPPER ABDOMEN OVER INCISION WHICH WAS CHANGED TODAY. BOTH CAN BE CHANGED PRN. FAMILY BROUGHT HIM SOME EXTRA CLOTHES. HAD A SEVERE HEADACHE WHEN HE GOT HERE. GIVEN PERCOCET 2 TABS PO AT 1006 WHICH DID HELP HIS PAIN. ALSO GIVEN ULTRAM AT 1430 FOR HEADACHE IN THERAPY. NO OTHER COMPLAINTS. Follow up:
--- NOTE | 2017-05-08 05:37 | NUR ---
Alert and oriented. Cooperative with cares. Needs reminders to call for assistance. Is one person assist with gaitbelt. Slightly unsteady. Dsing to back of head and mid abdomen dry and intact. Hep lock to left arm. FIM shower this am. Dsings can be changed prn. Took Tylenol at hs for headache, but no other prn pain meds this shift. Does have order for Percocet or Ultram. CW=519/83. Slept well this shift.
[2017-05-08 05:49] LABS: BASOPHIL # 0.1 K/uL (0.0-0.2); BASOPHIL % 1.1 %; EOSINOPHIL # 0.1 K/uL (0.0-0.5); EOSINOPHIL % 2.7 %; HEMATOCRIT 38.8 % (37.0-53.0); HEMOGLOBIN 14.1 g/dL (12.0-17.0); IMMATURE GRANULOCYTE % 0.2 %; LYMPHOCYTE # 0.7 K/uL (0.8-4.0); LYMPHOCYTE % 16.6 %; MCH 33.7 pg (27.0-34.0); MCHC 36.3 gm/dL (32.0-36.5); MCV 92.8 fl (83.0-98.0); MONOCYTE # 0.7 K/uL (0.0-1.0); MONOCYTE % 15.4 %; MPV 10.2 fl (9.4-12.4); NEUTROPHIL # (ANC) 2.8 K/uL (1.4-9.0); NRBC % 0 /100WBC (0-0.00); RBC 4.18 M/uL (4.00-6.00); RDW-CV 11.6 % (11.9-14.6); WBC 4.4 K/uL (4.0-11.0)
[2017-05-08 05:50] LABS: PLATELET COUNT 258 K/uL (150-450)
[2017-05-08 06:09] LABS: ALBUMIN 3.5 gm/dL (3.5-5.0); ALK PHOS 79 IU/L (33-138); ALT 27 IU/L (12-78); ANION GAP 11.7 (10.0-19.0); AST 13 IU/L (10-40); BLOOD UREA NITROGEN 13 mg/dL (6-24); CHLORIDE 100 mMol/L (96-110); CO2 24 mMol/L (22-32); ESTIMATED GFR (MDRD EQUATION) > 60; POTASSIUM 3.7 mMol/L (3.7-5.1); SODIUM 132 mMol/L (135-145); TOTAL PROTEIN 6.6 g/dL (6.0-8.4)
[2017-05-08 06:11] LABS: TOTAL BILIRUBIN 0.6 mg/dL (0.0-1.5)
--- NOTE | 2017-05-08 13:27 | NUR ---
Significant Event: PATIENT UP 1 ASSIST, STANDBY. ALERT AND ORIENTED X3. POSSIBLY CONFUSED AT TIMES. VITALS STABLE ON ROOM AIR. DRESSING TO POSTERIOR HEAD AND BACK. SHOWERED WITH OCCUPATIONAL THERAPY TODAY. PERCOCET X1 TODAY FOR HEADACHE. NO ISSUES SWALLOWING, FEEDS SELF WELL. CONTINENT OF BOWEL AND BLADDER. MAKES NEEDS KNOWN WELL. Follow up:
--- NOTE | 2017-05-09 05:23 | NUR ---
Alert and oriented. Up with one person standby assist. Wants to go home this weekend. Dsings to head and abdomen dry and intact, change prn. Takes Tylenol and Percocet for pain which was last given at HS. Has been sleeping well since.
--- NOTE | 2017-05-09 08:33 | NUR ---
D: Therapeutic Recreation Initial Assessment on the 05/09/17. I: Patient seen for 2 units at 834 to begin initial evaluation. 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 out to eat, grocery shopping, hand out with friends, some camping, birds/outdoors LEISURE INTERESTS: yard worked, garden, watch TV, cat - chief, crossword puzzles, fishing Patient is referred by medical staff for treatment and evaluation in the following areas: Community Skills, Functional Leisure Skills, Participation, Leisure Education/Behaviors, Family Education. Information obtained: Interview, Chart Review, Observation, other. BARRIERS TO LEISURE: Financial, Physical, Lifestyle (chew or tobacco use, 5-6 beers daily) Patient determined to be: APPROPRIATE FOR THERAPEUTIC RECREATION ASSESSMENT. TREATMENT WILL INCLUDE: Community living skills training Functional leisure development Physical skills development Leisure education Emotional/behavioral adaptation Family education Community resources/packet TARGET EQUIPMENT/INFORMATION: Parking Permit ? need Community Resources Energy conservation in community setting Van/Service/Taxi Scrip Adapted Leisure Equipment Stress management/Relaxation techniques Functional car transfers Leisure Education Behaviors: Attitude, Awareness, Participation. Patient functional skills level and potential: Good, pt demonstrates fair mobility with concerns for coping and depression due to current physical limitations. Patient oriented ot TR services on Rehab unit. Pt/family provided input into goals setting and plan of care. Pt's goal is to return to prior lifestyle which includes work. P: Target date set with personal goals established. Will continue with POC focusing on pt/family training and education. For additional information please see Nursing Data Base, PT, OT, CM, ST, initial assessments to [facility] and Interdisciplinary Assessments.
--- NOTE | 2017-05-09 16:00 | NUR ---
Significant Event:PATIENT ALERT AND ORIENTED THIS SHIFT. VSS. TRANSFERS WITH SBA. IS STEADY ON HIS FEET. COMPLAINED OF A HEADACHE THIS AM. GIVEN PERCOCET 2 TABS PO AT 0805. HAS NOT HAD BAD A HEADACHE SINCE. FAMILY AT BEDSIDE MOST OF THE DAY WHEN NOT IN THERAPY. SALINE LOCK IN RIGHT FOREARM INTACT. WANTS TO BE ABLE TO GO HOME. NO OTHER COMPLAINTS. Follow up:
--- NOTE | 2017-05-10 04:53 | NUR ---
Significant Event: Patient alert and oriented. Transfers 1 assist stand by. Tylenol given with HS pills for headache. Saline lock to R) forearm. Family at bedside this evening. VSS. Wants to go home as soon as possible. Cooperative with cares. Follow up:
--- NOTE | 2017-05-10 15:33 | NUR ---
Significant Event: Patient alert and oriented. Up on his own in his room. Will go home tomorrow. Sutures to head intact. [place] to abdomen intact. Dressing changed to abdomen. OT shower today. Follow up:
--- NOTE | 2017-05-11 05:14 | NUR ---
Significant Event: Patient alert and oriented. Transfers SBA or up in room on own. Plans to D'C today. VSS. Sutures intact to head and dressing intact to abdomen. Cooperative with cares. Follow up:
[2017-05-11] MEDS ORDERED: NORVASC10 MG PO (09:31)
[2017-05-11] MEDS ORDERED: APRESOLINE50 MG PO (09:32)
[2017-05-11] MEDS ORDERED: PRINIVIL OR ZES10 MG PO (09:33)
[2017-05-11] MEDS ORDERED: TYLENOL325 MG PO (09:34)
[2017-05-11] MEDS ORDERED: ULTRAM50 MG PO (09:36)
--- NOTE | 2017-05-11 11:07 | NUR ---
Significant Event: Patient alert and orineted. Will be going home today with family. Sutures to head intact. Dressing to abdomen intact. Dismissal paperwork done with patient and family. Verbalized understanding. Follow up:
--- NOTE | 2017-05-16 11:51 | NUR ---
[facility] Case Management Prefunctioning and Psycho-Social Initial Assessment for 05/07/17 and Discharge Note for 05/10/17 D: Initial Round BonerDirector Of Product Development and Discharge Note. I: Input from: patient, family, Kat Soto UNION CONTRACT REPRESENTATIVE R: Reason for admission: 05/01/17 right GEOGRAPHIC INFORMATION SYSTEM SURVEYOR shunt insterion. 05/03/17, revision right GEOGRAPHIC INFORMATION SYSTEM SURVEYOR shunt due to hydrocephalus. Admission Date to [facility]: 05/07/17 Admission Date to Hospital: 04/30/17 Prior level of functioning: patient was independent with adl's and household prior to hospitalization. Prior living situation: one story house with basement. Financial resources/expectations: patient has BC/BS Resources used: none. 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 Behavior/Emotional needs: cues for safety. Monitor for signs and symptoms of depression and anxiety. Legal concerns: none. Discharge goal: home with family Assessment: Archie is a 46 year old man from [place], [place]. He lives with ex- and kids. Plan is for patient to go home on 05/10/17. Patient will have outpatient therapy. He will follow up eventually with Vocational Rehab. Will call patient next week to see how he is doing post discharge. Orientation to the program and CM services completed with Archie. Initial plan of care and estimated length of stay discussed, disclosure statement reviewed including patient assessment rights. P: Target date and individual goals established. Please see POC for details. For additional information please see Nursing Data Base, PT, OT, TR, ST, Initial assessments to [facility].
== END 2017-05-11 11:00 | disposition home health service (06) | DRG 93 ==
LOC: GIRP 09:14
PROVIDERS: ADMIT Physical Medicine & Rehabilitation
DX: R26.81 Unsteadiness on feet (principal); I10 Essential (primary) hypertension; Z74.1 Need for assistance with personal care; R47.9 Unspecified speech disturbances; R41.3 Other amnesia; Z98.2 Presence of cerebrospinal fluid drainage device; Z51.89 Encounter for other specified aftercare

== ENCOUNTER → 2017-06-23 | Outpatient (CLI) | payer BC | END | disposition disaster alternative care site (69) | LOC: GRAD 12:33 | DX: G91.9 Hydrocephalus, unspecified (principal); Z98.2 Presence of cerebrospinal fluid drainage device ==